=== PATIENT | female | born 1955 | race Two or more races ===

== ENCOUNTER 2017-03-15 11:26 | Emergency (ER) | payer MEDICAID ==
[~2017-03-15] VITALS: Ht 165.1 cm; Wt 77.1 kg
[~2017-03-15 11:26] MED LIST: ATEN-60 PO; ENAL2.5T PO; GLIP-115 PO; HYDR25TA4 PO; METF-370 PO; PRAV20TA3 PO
[2017-03-15 11:53] LABS: Urine RBC None Seen /hpf (0 - 4)
[2017-03-15 11:59] LABS: Urine Bilirubin Negative (Negative); Urine Blood Negative /uL (Negative); Urine Color Yellow (Yellow); Urine Ketone Negative (Negative); Urine Nitrite Negative (Negative); Urine Squamous Epithelial Cell FEW /hpf (<5); Urine Urobilinogen Normal (Negative)
[2017-03-15 12:01] LABS: Urine Glucose 3+ mg/dL (Normal)
[2017-03-15 12:12] LABS: Basophils # (auto) 0 uL; Basophils % (auto) 0.5 % (0.0-2.0); CONDITION Y; Eosinophils # (auto) 0.2 uL; Eosinophils % (auto) 2.5 % (0.0-7.0); Hematocrit 43.7 % (36.0-46.0); Lymphocytes # (auto) 1.8 uL; Mean Corpuscular Hemoglobin 30.8 pg (28.0-32.0); Mean Corpuscular Hgb Conc. 34.3 g/dL (32.0-36.0); Mean Corpuscular Volume 89.8 fL (80.0-100.0); Mean Platelet Volume 9.3 fL (7.4-10.4); Monocytes # (auto) 0.5 uL; Monocytes % (auto) 6.2 % (0.0-12.0); Neutrophils # (auto) 5.2 uL; Neutrophils % (auto) 67.8 % (37.0-80.0); Platelet Count (auto) 259 10^3/uL (140-450); Red Cell Distribution Width 13.1 % (11.6-16.0); White Blood Cell 7.7 10^3/uL (4.4-10.8)
[2017-03-15 12:17] LABS: Albumin 3.6 g/dL (3.4-5.0); BUN/Creatinine Ratio 29.2; Calcium 9.1 mg/dL (8.5-10.1); Potassium 3.6 mmol/L (3.5-5.1)
[2017-03-15 14:02] VITALS: BP 142/83
[2017-03-15] MEDS ORDERED: KETOROLAC TROMETH 30 MG/ML 1ML VIAL IV ONE (14:15)
== END 2017-03-15 15:42 | disposition home or self-care (01) ==
LOC: ER 11:27
DX: S39.012A Strain of muscle, fascia and tendon of lower back, initial encounter (principal); X58.XXXA Exposure to other specified factors, initial encounter; Y93.89 Activity, other specified; Y99.8 Other external cause status; Y92.89 Other specified places as the place of occurrence of the external cause; Z88.0 Allergy status to penicillin; I10 Essential (primary) hypertension; E11.9 Type 2 diabetes mellitus without complications
CPT/HCPCS: 36415; 74176; 80053; 81001; 85025; 96374; 99285; J1885

== ENCOUNTER 2017-12-15 09:00 | Emergency (ER) | payer MEDICAID ==
[~2017-12-15] VITALS: Ht 165.1 cm; Wt 79.8 kg
[2017-12-15 09:15] VITALS: BP 148/107
== END 2017-12-15 10:05 | disposition home or self-care (01) ==
LOC: ER 09:03
DX: M17.12 Unilateral primary osteoarthritis, left knee (principal); E11.9 Type 2 diabetes mellitus without complications; I10 Essential (primary) hypertension; Z88.0 Allergy status to penicillin
CPT/HCPCS: 73562